=== PATIENT | female | born 1930 | race Caucasian/White ===

== ENCOUNTER 2017-03-03 13:36 | Emergency (ER) | payer MEDICARE, BC ==
--- NOTE | 2017-03-03 14:17 | EDM.PDOC ---
ED HPI Trauma - General Chief Complaint: Upper Extremity Injury/Pain Stated Complaint: right wrist pain Time Seen by Provider: 03/03/17 14:05 Source: Reports: Patient History Limitations: Reports: No limitations - History of Present Illness INITIAL COMMENTS - FREE TEXT/NARRATIVE: Patient comes in after falling while walking at an area building. She has a visible deformed right wrist. She states she does not have much pain and did deny pain medication. She states she lost her balance. She has both a cane and walker that she does not use when walking. She did not hit her head, no LOC , no chest or back pain. She is alert and oriented. Symptom Onset Date: 03/03/17 Occurred When: just prior to arrival Occurred Where: other Method of Injury: fall Severity: moderate Pain/Injury Location: Reports: upper extremity, right Consciousness: Reports: no loss of consciousness Associated Symptoms: Reports: no other symptoms Allergies/ADRs: Allergies No Known Allergies Allergy (Verified 03/03/17 14:23) Home Medications: Ambulatory Orders . [Unable to Verify Home Med List] 03/03/17 [Confirmed 03/03/17] Review of Systems - Review of Systems Review Of Systems: See Below Constitutional: Reports: no symptoms Eyes: Reports: no symptoms Ears: Reports: no symptoms Nose: Reports: no symptoms Mouth/Throat: Reports: no symptoms Respiratory: Reports: No Symptoms Cardiovascular: Reports: no symptoms GI/Abdominal: Reports: No symptoms Genitourinary: Reports: no symptoms Musculoskeletal: Reports: hand pain Skin: Reports: no symptoms Neurological: Reports: No Symptoms Psychiatric: Reports: no symptoms Trauma Exam - Physical Exam Exam: See Below Exam Limited By: No limitations General Appearance: Reports: alert, WD/WN, no apparent distress Head: Reports: atraumatic, normocephalic Neck: Reports: non-tender Respiratory Exam: Reports: no respiratory distress, lungs clear, normal breath sounds Cardiovascular: Reports: normal peripheral pulses, regular rate, rhythm, no edema GI/Abdominal: Reports: normal bowel sounds, soft, non tender Back: Reports: full range of motion Extremities: Reports: joint effusion, pain with movement, tenderness Neurologic: Reports: supervisor finishing room II-XII nml as tested, no motor/sensory deficits, alert , normal mood/affect, oriented x 3 Skin: Reports: Normal color Course - Vital Signs Last Recorded V/S: Last Vital Signs Temp 35.5 C 03/03/17 13:45 Pulse 76 03/03/17 13:45 Resp 16 03/03/17 13:45 BP 137/73 03/03/17 13:45 Pulse Ox - Orders/Labs/Meds Orders: Active Orders 24 hr Category Date Time Status Wrist Comp Min 3V Rt [CR] Stat Exams 03/03/17 14:05 Taken Departure - Departure Time of Disposition: 15:15 Disposition: DC/Tfer to Other 70 Condition: good Clinical Impression: Fracture of right distal radius Qualifiers: Encounter type: initial encounter Fracture type: closed Fracture morphology: unspecified fracture morphology Qualified Code(s): S52.501A - Unspecified fracture of the lower end of right radius, initial encounter for closed fracture Instructions: Radial Fracture Referrals: Migdalia Franklin, [Primary Care Provider] - Forms: Interfacility Transfer EMTALA Additional Instructions: I did discuss your case with Dr. Flaherty, the b[facility] cutter orthopedic provider at [facility] in [place]. He recommended reduction of the broken distal radius. I am sending you to the ED in [place] today. You may go home and pack some items in case they decide to do an internal fixation. The ED is expecting you. We will splint your arm before you leave. - Problem List & Annotations (1) Fracture of right distal radius SNOMED Code(s): 804902177 Code(s): S52.501A - UNSP FRACTURE OF THE LOWER END OF RIGHT RADIUS, INIT Status: Acute Priority: Medium Qualifiers: Encounter type: initial encounter Fracture type: closed Fracture morphology: unspecified fracture morphology Qualified Code(s): S52.501A - Unspecified fracture of the lower end of right radius, initial encounter for closed fracture - My Orders Last 24 Hours: My Active Orders 03/03/17 14:05 Wrist Comp Min 3V Rt [CR] Stat - Assessment/Plan Last 24 Hours: My Active Orders 03/03/17 14:05 Wrist Comp Min 3V Rt [CR] Stat
[2017-03-03 14:44] VITALS: BP 137/73
== END 2017-03-03 15:15 | disposition other institution (70) ==
LOC: VM.ED 13:36
DX: S52.571A Other intraarticular fracture of lower end of right radius, initial encounter for closed fracture (principal); S52.611A Displaced fracture of right ulna styloid process, initial encounter for closed fracture; W19.XXXA Unspecified fall, initial encounter; Y93.01 Activity, walking, marching and hiking
CPT/HCPCS: 73110-RT; 99283; 99284-GF

== ENCOUNTER 2018-04-04 10:33 | Inpatient (IN) | payer MEDICARE, BC ==
[2018-04-04] MEDS ORDERED: Bisacodyl 10 MG Supp RECTAL PRN (12:48)
[2018-04-04] MEDS: Calcium Carbonate/Vitamin D3 1250 MG-200 Unit Tab PO SCH (17:08)
[2018-04-04] MEDS: Acetaminophen 325 MG Tab PO SCH ×2 (17:09→19:58)
--- NOTE | 2018-04-05 00:36 | HP ---
CHIEF COMPLAINT: Hip fracture. HISTORY OF PRESENT ILLNESS: This is an 88-year-old female who had a mechanical fall on March 30. She was trying to get through a door at the half-way with her walker and fell. She was visiting her sister there. She also struck the left side of her head but does not remember being knocked out. The next day she came to the clinic and was found to have a fracture. She was admitted to [facility] on 03/31/2018, discharged today for a closed fracture of the left hip. She underwent operative repair by Dr. Fairbanks on 04/01/2018 with closed reduction and percutaneous fixation of the left femoral neck fracture. She states she really has not had that much pain postoperatively. She feels like she is getting around good. She actually wanted to go home with her but therapies were recommending a swing bed. She was having a little confusion on and off down in [place] on the they found her to have a UTI. They started her on Keflex; however, the culture came back as mixed microflora. She was on Keflex and I discontinued today due to the culture. She is not having any burning with urination. She seems able to answer all questions for me today. Otherwise, she is having bowel movements. She is not having any cough. No chest pain. No shortness of breath. PAST MEDICAL HISTORY: She does have a known history for past medical history of osteopenia. She has had a previous wrist fracture about a year ago. She declines osteoporosis treatments but did take Fosamax back in 2016. T-score minus 2.3 in 2013. Otherwise, she has known history of unsteady gait. She has had previous SVT potentially but does well on metoprolol, essential hypertension, previous breast cancer in 1999, status post mastectomy, hyperlipidemia, hypothyroidism, previous BPPV. PREVIOUS SURGERIES: She has had a left hip surgery as discussed above, IM nailing, open reduction of a right wrist fracture and a bladder repair and breast surgery, the mastectomy. SOCIAL HISTORY: She lives at home with her . She is a retired teacher. She has 6 children. She is a nonsmoker. FAMILY HISTORY: She otherwise has a family history of parents . Her mother had a heart attack and diabetes. ALLERGIES: Sulfa drugs. MEDICATIONS: Medication list does list tramadol 50 mg every 4 hours as needed for moderate pain, Tylenol 325 two tablets 4 times a day, Lovenox 40 mg daily until 04/29/2018, Lopressor 25 mg twice daily, MiraLAX one packet daily, docusate suppository if needed, melatonin 3 mg at bedtime, levothyroxine 50 mcg daily with vitamin D 2000 units daily, calcium and D, multivitamin, Metamucil daily, again Keflex 500 mg b.i.d. REVIEW OF SYSTEMS: General: She has not had any weight changes. No fever. No chills. HEENT: No sore throat. Cardiac: No chest pain. No palpitations. Respiratory: No cough. No shortness of breath. : No dysuria. GI: No nausea, vomiting, abdominal pain, or constipation. No diarrhea. Neurologic: There has been some slight reported confusion. Daughter reported she was mistaken on the year, thinking it was 2016 and also that she was thinking that she was at home and actually she was at the hospital. The patient tells me this is how I am always been , so the patient herself was not overly concerned. Looks like the occupational therapist saw her on the , felt she was also mildly confused. VITAL SIGNS: Her blood pressure on admission 158/97, temperature 97.6, pulse 74, respiratory rate 20, and O2 97% on room air. Weight is 70.2 kg. STUDIES: Lab work done in [place] for her hemoglobin yesterday was 10.9. Magnesium on 03/31 was 2. Platelets on 03/31 were 174. Sodium was 132 on 03/31, potassium 4.2, bilirubin 1.3, glucose 109. ASSESSMENT: 1. Postoperative from a left hip fracture, 03/30, OR on 04/01, for closed reduction, left femoral neck fracture. Dressing is to be left in place until she follows up with Orthopedics. There are no reported pho[place]. She will have OT and PT follow her here for further therapies. 2. Deep venous thrombosis prophylaxis. She will be on Lovenox until 04/29. 3. Pain control. She is doing well. Due to the concern with confusion, I have discontinued tramadol. She will be on Tylenol only. 4. Recent concern for urinary tract infection. Culture negative. We will stop the Keflex. 5. Mild hyponatremia. We will repeat lab work Saturday. 6. Mild anemia. We will repeat lab work Saturday. 7. Essential hypertension. Blood pressure mildly elevated. She is on metoprolol, Lopressor just to 25 mg daily. We will certainly increase this if needed. 8. Osteopenia with fracture. Technically she meets criteria for osteoporosis. Did discuss treatments with her. She is not interested at this point. Does have a followup with Sara Ramirez, can further discuss bone health with her at that visit. PLAN: The patient will be admitted for swing bed for swing bed cares. We will get OT to do a cognitive eval as well next week. Anticipate that she will be discharged home with family and home health within the next week as well. MKA: 04/04/2018 18:12:13 MODL: 04/05/2018 00:29:17 /[id number] ALEX
[2018-04-05] MEDS: Levothyroxine 50 MCG Tab PO SCH (06:55)
[2018-04-05] MEDS: Enoxaparin 40 MG/0.4 ML Syringe SUBCUT SCH (07:45)
[2018-04-05] MEDS: Multivitamins with Iron/Calcium/Folic Acid/Minerals Tab PO SCH (07:46)
[2018-04-05] MEDS: Cholecalciferol (Vitamin D3) 1,000 Unit Tab PO SCH (07:46)
[2018-04-05] MEDS: Acetaminophen 325 MG Tab PO SCH ×4 (07:46→20:55)
[2018-04-05] MEDS: Metoprolol Tartrate 25 MG Tab PO SCH (07:46)
[2018-04-05] MEDS: Calcium Carbonate/Vitamin D3 1250 MG-200 Unit Tab PO SCH (07:46)
[2018-04-05] MEDS: Psyllium Husk Powder Sugar Free 5.85 GM Packet PO SCH (07:47)
[2018-04-06] MEDS: Levothyroxine 50 MCG Tab PO SCH (06:44)
[2018-04-06] MEDS: Enoxaparin 40 MG/0.4 ML Syringe SUBCUT SCH (07:56)
[2018-04-06] MEDS: Multivitamins with Iron/Calcium/Folic Acid/Minerals Tab PO SCH (07:56)
[2018-04-06] MEDS: Metoprolol Tartrate 25 MG Tab PO SCH (07:56)
[2018-04-06] MEDS: Cholecalciferol (Vitamin D3) 1,000 Unit Tab PO SCH (07:56)
[2018-04-06] MEDS: Psyllium Husk Powder Sugar Free 5.85 GM Packet PO SCH (07:56)
[2018-04-06] MEDS: Calcium Carbonate/Vitamin D3 1250 MG-200 Unit Tab PO SCH (07:56)
[2018-04-06] MEDS: Acetaminophen 325 MG Tab PO SCH ×4 (07:56→20:19)
[2018-04-07] MEDS: Levothyroxine 50 MCG Tab PO SCH (06:02)
[2018-04-07] MEDS: Metoprolol Tartrate 25 MG Tab PO SCH (07:56)
[2018-04-07] MEDS: Cholecalciferol (Vitamin D3) 1,000 Unit Tab PO SCH (07:57)
[2018-04-07] MEDS: Calcium Carbonate/Vitamin D3 1250 MG-200 Unit Tab PO SCH (07:57)
[2018-04-07] MEDS: Enoxaparin 40 MG/0.4 ML Syringe SUBCUT SCH (07:57)
[2018-04-07] MEDS: Acetaminophen 325 MG Tab PO SCH ×4 (07:57→20:16)
[2018-04-07] MEDS: Multivitamins with Iron/Calcium/Folic Acid/Minerals Tab PO SCH (07:57)
[2018-04-07] MEDS: Psyllium Husk Powder Sugar Free 5.85 GM Packet PO SCH (07:57)
[2018-04-07 08:06] LABS: CHLORIDE,CL 99 mmol/L (98-107); SODIUM,NA 135 mmol/L (136-145)
[2018-04-08] MEDS: Levothyroxine 50 MCG Tab PO SCH (06:06)
[2018-04-08] MEDS: Acetaminophen 325 MG Tab PO SCH ×2 (08:01→11:29)
[2018-04-08] MEDS: Cholecalciferol (Vitamin D3) 1,000 Unit Tab PO SCH (08:02)
[2018-04-08] MEDS: Enoxaparin 40 MG/0.4 ML Syringe SUBCUT SCH (08:02)
[2018-04-08] MEDS: Multivitamins with Iron/Calcium/Folic Acid/Minerals Tab PO SCH (08:02)
[2018-04-08] MEDS: Psyllium Husk Powder Sugar Free 5.85 GM Packet PO SCH (08:02)
[2018-04-08] MEDS: Metoprolol Tartrate 25 MG Tab PO SCH ×2 (08:02→20:10)
[2018-04-08] MEDS: Calcium Carbonate/Vitamin D3 1250 MG-200 Unit Tab PO SCH (08:02)
--- NOTE | 2018-04-08 15:25 | PN ---
Progress Note for BRENDA VIDALES Date: 04/08/2018 Room #: VM.219 SUBJECTIVE: This is an 88-year-old on swing bed after a hip fracture. She states she has no pain and they are bringing her pills all the time. She has been on q.i.d. scheduled Tylenol. Otherwise, she has been on Lovenox for DVT prophylaxis. Her blood pressures are running slightly higher. Pulses are adequate high at 101. Therefore, she is okay with increasing her Lopressor to twice daily. She does not think she will have a problem taking pills twice a day at home. She did have memory testing, got 25/30, which was pretty good, but a 3.8/5.8 on her ACL, which is only 66% for her age. Otherwise, she denies any chest pain or trouble breathing. OBJECTIVE: VITALS: Temp 98, pulse 85, blood pressure 147/63, respiratory rate 18, O2 97% on room air. EXTREMITIES: On exam, we just examined her legs. There was no swelling or tenderness. ASSESSMENT: 1. Status post left hip fracture. Doing well on Lovenox for DVT prophylaxis. We will change her over to Tylenol p.r.n. 2. Recent urinary tract infection. Culture negative. She did receive some Keflex. 3. Mild hyponatremia. Lab work repeated yesterday, sodium was normal at 135. 4. Mild anemia. Hemoglobin was stable at 11.6. 5. Essential hypertension. We will increase Lopressor to twice daily. 6. Osteoporosis with fracture. She does have some followup with Orthopedics [facility] for this. 7. Mild cognitive impairment. PLAN: At this point, the patient will continue swing bed cares. PT is working with her. OT will now do an ADL assessment since a cognitive eval was completed. Looking at going home later this week or early next. MKA: 04/08/2018 14:57:30 MODL: 04/08/2018 15:17:00 /[id number]
[2018-04-09] MEDS: Levothyroxine 50 MCG Tab PO SCH (06:32)
[2018-04-09] MEDS: Psyllium Husk Powder Sugar Free 5.85 GM Packet PO SCH (07:59)
[2018-04-09] MEDS: Metoprolol Tartrate 25 MG Tab PO SCH ×2 (08:00→19:53)
[2018-04-09] MEDS: Calcium Carbonate/Vitamin D3 1250 MG-200 Unit Tab PO SCH (08:00)
[2018-04-09] MEDS: Cholecalciferol (Vitamin D3) 1,000 Unit Tab PO SCH (08:00)
[2018-04-09] MEDS: Multivitamins with Iron/Calcium/Folic Acid/Minerals Tab PO SCH (08:00)
[2018-04-09] MEDS: Enoxaparin 40 MG/0.4 ML Syringe SUBCUT SCH (08:00)
[2018-04-09] MEDS: Acetaminophen 325 MG Tab PO PRN ×2 (15:50→19:52)
[2018-04-10] MEDS: Levothyroxine 50 MCG Tab PO SCH (06:44)
[2018-04-10] MEDS: Enoxaparin 40 MG/0.4 ML Syringe SUBCUT SCH (07:17)
[2018-04-10] MEDS: Metoprolol Tartrate 25 MG Tab PO SCH ×2 (07:17→20:06)
[2018-04-10] MEDS: Calcium Carbonate/Vitamin D3 1250 MG-200 Unit Tab PO SCH (07:17)
[2018-04-10] MEDS: Cholecalciferol (Vitamin D3) 1,000 Unit Tab PO SCH (07:17)
[2018-04-10] MEDS: Psyllium Husk Powder Sugar Free 5.85 GM Packet PO SCH (07:17)
[2018-04-10] MEDS: Multivitamins with Iron/Calcium/Folic Acid/Minerals Tab PO SCH (07:17)
[2018-04-10] MEDS: Acetaminophen 325 MG Tab PO PRN ×2 (07:20→20:07)
[2018-04-11] MEDS: Levothyroxine 50 MCG Tab PO SCH (06:26)
[2018-04-11] MEDS: Calcium Carbonate/Vitamin D3 1250 MG-200 Unit Tab PO SCH (08:47)
[2018-04-11] MEDS: Psyllium Husk Powder Sugar Free 5.85 GM Packet PO SCH (08:47)
[2018-04-11] MEDS: Acetaminophen 325 MG Tab PO PRN (08:47)
[2018-04-11] MEDS: Cholecalciferol (Vitamin D3) 1,000 Unit Tab PO SCH (08:48)
[2018-04-11] MEDS: Metoprolol Tartrate 25 MG Tab PO SCH ×2 (08:48→19:51)
[2018-04-11] MEDS: Enoxaparin 40 MG/0.4 ML Syringe SUBCUT SCH (08:48)
[2018-04-11] MEDS: Multivitamins with Iron/Calcium/Folic Acid/Minerals Tab PO SCH (08:48)
[2018-04-12] MEDS: Acetaminophen 325 MG Tab PO PRN ×2 (01:00→10:57)
[2018-04-12] MEDS: Levothyroxine 50 MCG Tab PO SCH (06:29)
[2018-04-12] MEDS: Psyllium Husk Powder Sugar Free 5.85 GM Packet PO SCH (08:38)
[2018-04-12] MEDS: Multivitamins with Iron/Calcium/Folic Acid/Minerals Tab PO SCH (08:39)
[2018-04-12] MEDS: Cholecalciferol (Vitamin D3) 1,000 Unit Tab PO SCH (08:39)
[2018-04-12] MEDS: Calcium Carbonate/Vitamin D3 1250 MG-200 Unit Tab PO SCH (08:39)
[2018-04-12] MEDS: Metoprolol Tartrate 25 MG Tab PO SCH ×2 (08:41→19:42)
[2018-04-12] MEDS: Enoxaparin 40 MG/0.4 ML Syringe SUBCUT SCH (08:41)
[2018-04-13] MEDS: Levothyroxine 50 MCG Tab PO SCH (06:15)
[2018-04-13] MEDS: Psyllium Husk Powder Sugar Free 5.85 GM Packet PO SCH (08:41)
[2018-04-13] MEDS: Metoprolol Tartrate 25 MG Tab PO SCH ×2 (08:41→19:46)
[2018-04-13] MEDS: Calcium Carbonate/Vitamin D3 1250 MG-200 Unit Tab PO SCH (08:41)
[2018-04-13] MEDS: Cholecalciferol (Vitamin D3) 1,000 Unit Tab PO SCH (08:41)
[2018-04-13] MEDS: Multivitamins with Iron/Calcium/Folic Acid/Minerals Tab PO SCH (08:41)
[2018-04-13] MEDS: Enoxaparin 40 MG/0.4 ML Syringe SUBCUT SCH (08:43)
[2018-04-14] MEDS: Levothyroxine 50 MCG Tab PO SCH (06:20)
[2018-04-14] MEDS: Psyllium Husk Powder Sugar Free 5.85 GM Packet PO SCH (07:57)
[2018-04-14] MEDS: Multivitamins with Iron/Calcium/Folic Acid/Minerals Tab PO SCH (07:58)
[2018-04-14] MEDS: Cholecalciferol (Vitamin D3) 1,000 Unit Tab PO SCH (07:58)
[2018-04-14] MEDS: Metoprolol Tartrate 25 MG Tab PO SCH ×2 (07:58→20:03)
[2018-04-14] MEDS: Enoxaparin 40 MG/0.4 ML Syringe SUBCUT SCH (07:58)
[2018-04-14] MEDS: Acetaminophen 325 MG Tab PO PRN (07:58)
[2018-04-14] MEDS: Calcium Carbonate/Vitamin D3 1250 MG-200 Unit Tab PO SCH (07:58)
[2018-04-14] MEDS ORDERED: Acetaminophen 325 MG Tab PO PRN (12:03)
--- NOTE | 2018-04-14 12:27 | PN ---
Progress Note for BRENDA VIDALES Date: 04/14/2018 Room #: VM.219 SUBJECTIVE: This is an 88-year-old on swing bed after left hip fracture. The patient continues to have pain, but has only taken p.r.n. Tylenol once this morning, none yesterday, then 2 the day before. Due to her cognitive issues and longstanding leg weakness even before this fracture, family has decided that alf home stay for her as a next step would be beneficial. Brenda is agreeable to this. Otherwise, she has no trouble breathing. She does have some followups in [place] tomorrow. Her blood pressure is under better control on the increased metoprolol. OBJECTIVE: Vital Signs: Her temperature is 98, pulse 64, blood pressure 127/63, respiratory rate 18, O2 93% on room air. ASSESSMENT: 1. Left hip fracture with near fall. X-rays were done and they were sent to her orthopedic doctors to review. We will schedule Tylenol again for her. 2. Mild hyponatremia. Lab work last week was stable. Sodium was 135. 3. Mild anemia. Postoperative hemoglobin 11.6. We will repeat this week due to Lovenox. 4. Deep venous thrombosis prophylaxis, on Lovenox until 04/29/2018. 5. Essential hypertension, controlled on Lopressor. 6. Osteoporosis with pathologic fracture. She has a followup appointment with Orthopedics in [facility] tomorrow. PLAN: The patient will continue swing bed cares. She will see her Ortho for followup tomorrow. We will schedule Tylenol and discharge to [facility] on Saturday. MKA: 04/14/2018 12:06:48 MODL: 04/14/2018 12:21:20 /[id number]
[2018-04-14] MEDS: Acetaminophen 325 MG Tab PO SCH ×2 (12:44→20:02)
[2018-04-15] MEDS: Levothyroxine 50 MCG Tab PO SCH (06:10)
[2018-04-15] MEDS: Enoxaparin 40 MG/0.4 ML Syringe SUBCUT SCH (07:21)
[2018-04-15] MEDS: Calcium Carbonate/Vitamin D3 1250 MG-200 Unit Tab PO SCH (07:22)
[2018-04-15] MEDS: Acetaminophen 325 MG Tab PO SCH ×3 (07:22→19:44)
[2018-04-15] MEDS: Psyllium Husk Powder Sugar Free 5.85 GM Packet PO SCH (07:22)
[2018-04-15] MEDS: Metoprolol Tartrate 25 MG Tab PO SCH ×2 (07:22→19:43)
[2018-04-15] MEDS: Cholecalciferol (Vitamin D3) 1,000 Unit Tab PO SCH (07:22)
[2018-04-15 07:23] LABS: CHLORIDE,CL 95 mmol/L (98-107); SODIUM,NA 130 mmol/L (136-145)
[2018-04-15] MEDS: Multivitamins with Iron/Calcium/Folic Acid/Minerals Tab PO SCH (07:23)
[2018-04-16 05:47] VITALS: BP 129/75
[2018-04-16] MEDS: Levothyroxine 50 MCG Tab PO SCH (06:03)
[2018-04-16] MEDS: Enoxaparin 40 MG/0.4 ML Syringe SUBCUT SCH (07:32)
[2018-04-16] MEDS: Psyllium Husk Powder Sugar Free 5.85 GM Packet PO SCH (07:32)
[2018-04-16] MEDS: Acetaminophen 325 MG Tab PO SCH (07:32)
[2018-04-16] MEDS: Calcium Carbonate/Vitamin D3 1250 MG-200 Unit Tab PO SCH (07:32)
[2018-04-16] MEDS: Metoprolol Tartrate 25 MG Tab PO SCH (07:33)
[2018-04-16] MEDS: Cholecalciferol (Vitamin D3) 1,000 Unit Tab PO SCH (07:33)
[2018-04-16] MEDS: Multivitamins with Iron/Calcium/Folic Acid/Minerals Tab PO SCH (07:33)
--- NOTE | 2018-04-16 07:55 | DISCH ---
PRIMARY DISCHARGE DIAGNOSES: 1. Acute left hip fracture status post open reduction internal fixation on 04/01 for closed reduction. This was after a mechanical fall. 2. Deep venous thrombosis prophylaxis. She has been on Lovenox. 3. Near fall with increased pain and leg weakness since. She did have leg weakness even prior to this injury. 4. History of urinary tract infection treated with culture negative prior to arrival in [place]. No further urinary symptoms. 5. Mild hyponatremia. 6. Mild anemia. 7. Essential hypertension, under improved control on Lopressor twice daily. 8. Osteopenia with concern for osteoporosis with pathologic fracture. 9. Cognitive impairment with her mini-mental status 25/30. REASON FOR ADMISSION: On the date of admission, this 88-year-old was transferred from [place] for further therapies after a hip fracture. She was doing well and progressing with therapies. Sodium had improved all the way up to 135 on 04/07. Hemoglobin was stable at 11.6. She was on Lovenox. She had no leg swelling; however, she did have some leg weakness for the left leg sort of buckled. We did some x-rays on the next morning which was the and no fracture was noted. She went to her outpatient orthopedics appointment today and reports having more x-rays, but those reports are not back yet. Otherwise, she was started back on scheduled Tylenol. She never used any narcotics during her stay. She seemed to have more pain when she was up and moving. Otherwise, she was discharged to [facility] for further care. She was agreeable to this. She was having bowel movements. She was not having any trouble breathing. She was otherwise feeling well other than the leg weakness. OBJECTIVE: Vital Signs: On discharge, her temperature was 97.9, pulse was 84, blood pressure 119/73, respiratory rate 16, and O2 at 93 on room air. General: She is in no acute distress. Heart: Regular rate and rhythm. Respiratory: Lung sounds are clear to auscultation bilaterally without crackles or wheezes. Abdomen: Positive bowel sounds. Soft and nontender. Extremities: Warm and dry, just trace edema at the ankles. Mental Status: She is alert and orientated x3. Psych: She is not depressed or anxious. DISCHARGE PLANS AND INSTRUCTIONS: She is going over to [facility] for further therapies. No lab work will be due. She did have some lab work for bone health through the bone center which is pending through [facility]. She may be started on Forteo. They are planning also a DEXA scan for her as well. I will see her on the next custodial rounds. MKA: 04/15/2018 17:19:21 MODL: 04/16/2018 01:23:31 /[id number]
== END 2018-04-16 08:45 | DRG 560 ==
LOC: VM.MS 10:33
PROVIDERS: ADMIT Internal Medicine; ATTEND Internal Medicine
DX: S72.002D Fracture of unspecified part of neck of left femur, subsequent encounter for closed fracture with routine healing (principal); I47.1 Supraventricular tachycardia; E87.1 Hypo-osmolality and hyponatremia; W18.39XD Other fall on same level, subsequent encounter; M85.80 Other specified disorders of bone density and structure, unspecified site; I10 Essential (primary) hypertension; D64.9 Anemia, unspecified; G31.84 Mild cognitive impairment of uncertain or unknown etiology; R53.1 Weakness; E78.5 Hyperlipidemia, unspecified; E03.9 Hypothyroidism, unspecified; R26.81 Unsteadiness on feet; Z85.3 Personal history of malignant neoplasm of breast; Z90.10 Acquired absence of unspecified breast and nipple; Z79.01 Long term (current) use of anticoagulants; Z79.899 Other long term (current) drug therapy; Z98.890 Other specified postprocedural states; Z88.2 Allergy status to sulfonamides
CPT/HCPCS: 36415; 72170; 80048; 85025; 97110-GP; 97116-GP; 97161-GP; 97165-GO; 97530-GP; 97535-GO; A9270-GY; G0515-GO; J1650

== ENCOUNTER 2019-07-22 15:36 | Emergency (ER) | payer MEDICARE, BC ==
--- NOTE | 2019-07-22 16:37 | EDM.PDOC ---
ED HPI GENERAL MEDICAL PROBLEM - General Chief Complaint: Laceration Time Seen by Provider: 07/22/19 16:00 Source of Information: Reports: Patient, Family, RN - History of Present Illness INITIAL COMMENTS - FREE TEXT/NARRATIVE: Loni is an 89 y/o care home resident who reportedly fell in her room today at the care home. She was trying to get from her chair to her bed and fell. It is unclear what happened and she cannot remember either. Staff did help her right away. She did hit her head and staff there reported it as an abrasion. The fall happened about 1130 today. Patient complained of right hip pain and was weaker with ambulating so they sent her to the ER for evaluation. The patient does have some cognitive decline and it is difficult to get a complete history from her, but according to her family she is currently at her baseline. - Related Data Allergies Allergy/AdvReac Type Severity Reaction Status Date / Time Sulfa (Sulfonamide Allergy Other Verified 04/02/18 09:40 Antibiotics) Home Meds: Home Meds Bisacodyl 10 mg RC DAILY PRN 04/04/18 [History] Calcium Carbonate/Vitamin D3 [Calcium 600 + Vit D 200] 1 each PO DAILY 04/04/18 [History] Cholecalciferol (Vitamin D3) [Vitamin D3] 2,000 unit PO DAILY 04/04/18 [History] Levothyroxine [Synthroid] 50 mcg PO DAILY 04/04/18 [History] Multivitamin [Multi-Vitamin Daily] 1 tab PO DAILY 04/04/18 [History] Psyllium [Metamucil SF] 1 tbsp PO DAILY 04/04/18 [History] Acetaminophen 650 mg PO TID #0 04/15/18 [Rx] Acetaminophen [Tylenol] 325 mg PO Q4H PRN #30 tablet 04/15/18 [Rx] Enoxaparin [Lovenox] 40 mg SUBCUT Q24H #13 syringe 04/15/18 [Rx] Metoprolol Tartrate 25 mg PO BID #60 tablet 04/15/18 [Rx] cephALEXin [Keflex] 500 mg PO Q8H 7 Days #21 cap 07/22/19 [Rx] Past Medical History HEENT History: Reports: Allergic Rhinitis, Cataract, Other (See Below) Other HEENT History: presbyopia, hypermetropia Cardiovascular History: Reports: High Cholesterol, Hypertension Other Cardiovascular History: irreg HR Musculoskeletal History: Reports: Other (See Below) Other Musculoskeletal History: hip fracture, osteopenia Endocrine/Metabolic History: Reports: Hypothyroidism Hematologic History: Reports: Other (See Below) Other Hematologic History: hyponatremia Oncologic (Cancer) History: Reports: Breast - Past Surgical History Female Surgical History: Reports: Mastectomy ED ROS GENERAL - Review of Systems Review Of Systems: See Below (Cognitive status makes ROS difficult) Constitutional: Reports: Weakness HEENT: Reports: No Symptoms Respiratory: Reports: No Symptoms Cardiovascular: Reports: No Symptoms Endocrine: Reports: No Symptoms GI/Abdominal: Reports: No Symptoms : Reports: No Symptoms Musculoskeletal: Reports: Joint Pain (right hip) Skin: Reports: Other (scalp laceration) Neurological: Reports: No Symptoms Psychiatric: Reports: No Symptoms, Other (at baseline) Hematologic/Lymphatic: Reports: No Symptoms Immunologic: Reports: No Symptoms ED EXAM, SKIN/RASH Exam: See Below General Appearance: Alert, WD/WN, No Apparent Distress Ears: Normal External Exam, Normal Canal, Hearing Grossly Normal Nose: Normal Inspection, Normal Mucosa Throat/Mouth: Normal Inspection, Normal Lips, Normal Teeth Head: Normocephalic, Other (2 cm laceration to occipital region, not bleeding) Neck: Normal Inspection, Supple, Non-Tender Respiratory/Chest: No Respiratory Distress, Lungs Clear, Normal Breath Sounds Cardiovascular: Regular Rate, Rhythm, No Edema, No Murmur GI/Abdominal: Normal Bowel Sounds, Soft, Non-Tender, No Distention (Female) Exam: Deferred Rectal (Female) Exam: Deferred Back Exam: Normal Inspection Extremities: Normal Capillary Refill, Leg Pain (right hip/leg pain with movement ; no deformity) Psychiatric: Normal Mood Skin: Warm, Dry, Intact, Normal Color, No Rash Lymphatic: No Adenopathy ED SKIN PROCEDURES - Laceration/Wound Repair Occipital Appearance: Linear, Clean Skin Prep: Chlorhexidine (Hibiciens) Saline Irrigation (cc's): 30 Exploration/Debridement/Repair: Wound Explored, No Foreign Material Found Closed with: Draper Lac/Wound length In cm: 2 # of Sutures: 5 Suture Type: Other (Katlyn) Progress/Comments: Patient tolerated the procedure well. Course - Vital Signs Text/Narrative:: 1600 The patient was seen by the SOCIAL MEDIA EXECUTIVE. Labs and xray were ordered. The laceration on her scalp was repaired, see procedure note. 1715 Results reviewed. Will treat UTI with Keflex, Urine Cx pending. Discharge instructions given and patient sent back to care home in stable condition. - Orders/Labs/Meds Orders: Active Orders 24 hr Category Date Time Status UA W/MICROSCOPIC [URIN] Stat Lab 07/22/19 17:00 Results Labs: Laboratory Tests 07/22/19 07/22/19 07/22/19 Range/Units 16:39 16:39 17:00 WBC 10.5 H (4.0-10.0) x10^3/uL RBC 3.47 L (4.00-5.50) x10^6/uL Hgb 12.1 (12.0-16.0) g/dL Hct 35.7 (33.0-47.0) % MCV 102.9 H (78.0-93.0) fL MCH 34.9 H (26.0-32.0) pg MCHC 33.9 (32.0-36.0) g/dL RDW Coeff of Linda 11.7 (10.0-15.0) % Plt Count 203 D (130-400) x10^3/uL Neut % (Auto) 83.4 H (50.0-80.0) % Lymph % (Auto) 6.4 L (25.0-50.0) % [place] % (Auto) 10.1 (2.0-11.0) % Eos % (Auto) 0.0 (0.0-4.0) % Baso % (Auto) 0.1 L (0.2-1.2) % Sodium 132 L (136-145) mmol/L Potassium 4.5 (3.5-5.1) mmol/L Chloride 94 L (98-107) mmol/L Carbon Dioxide 29 (21-32) mmol/L Anion Gap 13.5 (10-20) mmol/L BUN 19 H (7-18) mg/dL Creatinine 1.0 (0.55-1.02) mg/dL Est Cr Clr Drug Dosing TNP Estimated GFR (MDRD) 52 Glucose 122 H (74-106) mg/dL Calcium 9.4 (8.5-10.1) mg/dL Urine Color Dark yellow H (YELLOW) Urine Appearance Cloudy H (CLEAR) Urine pH 5.5 (5.0-8.0) Ur Specific [place] 1.020 Urine Protein 30 H (NEGATIVE) mg/dL Urine Glucose (UA) Negative (NEGATIVE) mg/dL Urine Ketones Trace H (NEGATIVE) mg/dL Urine Occult Blood Trace-intact H (NEGATIVE) Urine Nitrite Negative (NEGATIVE) Urine Bilirubin Negative (NEGATIVE) Urine Urobilinogen 0.2 (0.2) EU/dL Ur Leukocyte Esterase Small H (NEGATIVE) Departure - Departure Time of Disposition: 17:13 Disposition: DC/Tfer to Nursing Home Care [facility] Condition: Good Clinical Impression: Occipital scalp laceration, Fall, UTI (urinary tract infection) - Discharge Information *PRESCRIPTION DRUG MONITORING PROGRAM REVIEWED*: Not Applicable *COPY OF PRESCRIPTION DRUG MONITORING REPORT IN PATIENT LINDSAY: Not Applicable Prescriptions: cephALEXin [Keflex] 500 mg PO Q8H 7 Days #21 cap Instructions: Laceration Care, Adult, Head Injury, Adult, [id number], Urinary Tract Infection, Adult, Fall Prevention in Hospitals, Adult Forms: ED Department Discharge Additional Instructions: 1)Keep wound on scalp clean daily with soap and water, then may leave open to air. Watch for sx of infection. 2)RTC 7 days for staple removal 3)May use APAP as needed for pain 4)Cephalexin 500mg oral q 8 hours x 7 days for UTI 5)Watch for any Head Injury Symptoms 6)Return to the ER if any concerns or not improving as expected - My Orders Last 24 Hours: My Active Orders 07/22/19 17:00 UA W/MICROSCOPIC [URIN] Stat - Assessment/Plan Last 24 Hours: My Active Orders 07/22/19 17:00 UA W/MICROSCOPIC [URIN] Stat
--- NOTE | 2019-07-22 16:44 | CR ---
[id number] RAD/RAD Pelvis 1V W 2V Right Hip Exam: RAD Pelvis 1V W 2V Right Hip Clinical Data: TRAUMA COMPARISON: CORRELATION IS MADE WITH THE EXAM OF APRIL 10, 2018 FINDINGS: No new fracture or dislocation is seen. Surgical changes of the left hip are identified IMPRESSION: NO NEW FRACTURE OR DISLOCATION Shine Arnold MD 07/22/19 [id number] Thank you for allowing us to participate in the care of your patient.
[2019-07-22 16:59] LABS: CHLORIDE,CL 94 mmol/L (98-107); SODIUM,NA 132 mmol/L (136-145)
[2019-07-22 17:02] LABS: ANION GAP 13.5 mmol/L (10-20)
[2019-07-22 17:48] VITALS: BP 104/53
== END 2019-07-22 17:50 ==
LOC: VM.ED 15:36
DX: S01.01XA Laceration without foreign body of scalp, initial encounter (principal); N39.0 Urinary tract infection, site not specified; W19.XXXA Unspecified fall, initial encounter; I10 Essential (primary) hypertension; E03.9 Hypothyroidism, unspecified; E78.00 Pure hypercholesterolemia, unspecified; Z79.899 Other long term (current) drug therapy; Z88.2 Allergy status to sulfonamides; Y92.122 Bedroom in nursing home as the place of occurrence of the external cause
CPT/HCPCS: 12001; 36415; 80048; 81001; 85025; 99284-GF; 99285-25

== ENCOUNTER 2019-08-22 18:33 | Emergency (ER) | payer MEDICARE, BC ==
--- NOTE | 2019-08-22 19:00 | EDM.PDOC ---
ED HPI GENERAL MEDICAL PROBLEM - General Chief Complaint: General Stated Complaint: CODE BLUE Time Seen by Provider: 08/22/19 18:43 Source of Information: Reports: EMS, EMS Notes Reviewed - History of Present Illness INITIAL COMMENTS - FREE TEXT/NARRATIVE: Patient comes into the emergency department by EMS as a CODE BLUE. Patient was a resident at the snf and placed her call light on. When staff arrived the patient stay that she was short of breath. The nursing staff grabbed a registered nurse when the nurse came into the room the patient stated she was short of breath and became unresponsive for the nurse. Nursing personnel contacted 911 immediately and began CPR. EMS on scene stated that the police were on scene and 80 was advising no shock. EMS continuous CPR administering the Gera device and epinephrine was given. EMS states that they were able to obtain a pulse on 3 different occasions prior to arrival to the emergency department. They also administered 3 rounds of epi. During that timeframe analysis on the monitor did not show a shockable rhythm during pulseless activity. Upon arrival to the emergency department the was present with the patient he states that the patient does not want to be intubated. We had a discussion that the patient was to regain consciousness that a endotracheal tube would need to be placed. He requested that we go head and C-spine efforts. He and his had discussed that they did not wish for her to be intubated. One round of epi was initiated during this discussion. A pulse check was completed at 1839. secured entrance monitor showed no heart activity, heart sounds absent , pulses not palpable, no spontaneous respirations, no chest rise, no breath sounds noted. Code was called at 1839. Onset: Sudden Quality: Reports: Other Improves with: Reports: None Worsens with: Reports: None Associated Symptoms: Reports: Other - Related Data Allergies Allergy/AdvReac Type Severity Reaction Status Date / Time Sulfa (Sulfonamide Allergy Other Verified 07/22/19 17:37 Antibiotics) Home Meds: Home Meds Bisacodyl 10 mg RC DAILY PRN 04/04/18 [History] Calcium Carbonate/Vitamin D3 [Calcium 600 + Vit D 200] 1 each PO DAILY 04/04/18 [History] Cholecalciferol (Vitamin D3) [Vitamin D3] 2,000 unit PO DAILY 04/04/18 [History] Levothyroxine [Synthroid] 50 mcg PO DAILY 04/04/18 [History] Multivitamin [Multi-Vitamin Daily] 1 tab PO DAILY 04/04/18 [History] Psyllium [Metamucil SF] 1 tbsp PO DAILY 04/04/18 [History] Acetaminophen 650 mg PO TID #0 04/15/18 [Rx] Acetaminophen [Tylenol] 325 mg PO Q4H PRN #30 tablet 04/15/18 [Rx] Enoxaparin [Lovenox] 40 mg SUBCUT Q24H #13 syringe 04/15/18 [Rx] Metoprolol Tartrate 25 mg PO BID #60 tablet 04/15/18 [Rx] cephALEXin [Keflex] 500 mg PO Q8H 7 Days #21 cap 07/22/19 [Rx] Past Medical History HEENT History: Reports: Allergic Rhinitis, Cataract, Other (See Below) Other HEENT History: presbyopia, hypermetropia Cardiovascular History: Reports: High Cholesterol, Hypertension Other Cardiovascular History: irreg HR Musculoskeletal History: Reports: Other (See Below) Other Musculoskeletal History: hip fracture, osteopenia Endocrine/Metabolic History: Reports: Hypothyroidism Hematologic History: Reports: Other (See Below) Other Hematologic History: hyponatremia Oncologic (Cancer) History: Reports: Breast - Past Surgical History Female Surgical History: Reports: Mastectomy ED ROS GENERAL - Review of Systems Review Of Systems: Unable To Obtain ED EXAM, GENERAL - Physical Exam Exam: Not Obtained General Appearance: Other (unresponsive) Eye Exam: Bilateral Eye: Other (fixed dilated pupils with no response) Course - Orders/Labs/Meds Meds: Medications Discontinued Medications Generic Name Dose Route Start Last Admin Trade Name Freq PRN Reason Stop Dose Admin Epinephrine HCl 1 mg 08/22/19 19:01 Epinephrine 1:10,000 IVPUSH 08/22/19 19:02 ONETIME ONE Departure - Departure Time of Disposition: 18:39 Disposition: 20 Clinical Impression: Cardiac arrest - Discharge Information *PRESCRIPTION DRUG MONITORING PROGRAM REVIEWED*: Not Applicable *COPY OF PRESCRIPTION DRUG MONITORING REPORT IN PATIENT LINDSAY: Not Applicable Forms: ED Department Discharge - Assessment/Plan Assessment:: 1. code blue-sudden cardiac arrest Plan: 1. ACLS protocol was followed for code blue 2. Family at the bedside immediately when patient arrived to the emergency department. Family and patient wishes were not have patient intubated. They request to cease efforts. 3. Epi was administered and pulse checks were completed and verification of noted at 1839. 4. Family present at the bedside. Pastoral care contacted. 5. forensic computer examiner not contacted. Cardiac arrest was witnessed by medical personnel, patient did not have a fall within the facility or any major hospitalizations/surgeries within the last 30 days 6. Family at the bedside. All questions and concerns addressed prior to discharge
[2019-08-22] MEDS ORDERED: EPINEPHrine 1:10,000 1 MG/10 ML Syringe IVPUSH ONE (19:01)
== END 2019-08-22 20:02 | disposition expired ==
LOC: VM.ED 18:33
DX: I46.9 Cardiac arrest, cause unspecified (principal); I10 Essential (primary) hypertension; E03.9 Hypothyroidism, unspecified; Z88.2 Allergy status to sulfonamides; Z79.899 Other long term (current) drug therapy
CPT/HCPCS: 92950; 96374; 99285; J0171